=== PATIENT | male | born 1970 | race Caucasian/White ===

== ENCOUNTER → 2019-07-23 | Outpatient (CLI) | payer SELFPAY | LOC: CARD 11:38 | PROVIDERS: ATTEND Internal Medicine Cardiovascular Disease | DX: E78.2 Mixed hyperlipidemia (principal); R06.00 Dyspnea, unspecified; E11.9 Type 2 diabetes mellitus without complications; I25.10 Atherosclerotic heart disease of native coronary artery without angina pectoris; E66.9 Obesity, unspecified ==

== ENCOUNTER → 2019-07-24 | Outpatient (CLI) | payer SELFPAY ==
[~2019-07-24] VITALS: Ht 165 cm; Wt 108.0 kg
[~2019-07-24] MED LIST: CATHETER FLUSH 10 ML SYR IV PRN
[2019-07-24 09:49] VITALS: BP 139/73
--- NOTE | 2019-07-24 16:16 | STRESS TEST ---
DATE OF SERVICE: 07/24/2019 [facility] STRESS TEST REPORT REFERRING PHYSICIAN: Dr. Joshua Adams. Baseline heart rate is 64. Baseline blood pressure 117/80. Baseline EKG is sinus rhythm with no ischemic changes. In summary, the patient was injected with 10.88 mCi of technetium-99 Myoview and the resting images were obtained. Then, the patient started exercising with a baseline heart rate, blood pressure and EKG mentioned above. The patient was able to exercise for a total of 6 minutes 15 seconds on standard Narinder protocol. With peak exercise level, EKG was showing [address] depression in II, III and lead II, otherwise nonspecific changes. During recovery, heart rate and blood pressure returned to baseline. The resting and stress images were reviewed and compared in the short axis, horizontal long axis, and vertical long axis views. Review of the images showed good radiotracer uptake with no significant ischemia or infarction. SSS is 0. TID value 1.03. On the gated images, the left ventricle appeared to be normal size with normal contractility. Calculated ejection fraction 68%. CONCLUSION: 1. Fair exercise tolerance, a total of 6 minutes 15 seconds on standard Narinder protocol, a total of 7.1 METS achieving 86% of maximum expected heart rate. 2. Nondiagnostic EKG changes with exercise returned to baseline during recovery. 3. No ischemia or infarction on SPECT images. 4. Normal left ventricular size with normal contractility. Calculated ejection fraction 68%. Job ID: [id number] DocumentID: [id number] Dictated Date: 07/24/2019 16:02:44 Public Health Director Date: 07/24/2019 16:15:07 Dictated By: LAURIE HOOD MD
== END ==
LOC: CARD 07:49 → EDUNIT# 08:45
PROVIDERS: ATTEND Internal Medicine Cardiovascular Disease
DX: E78.2 Mixed hyperlipidemia (principal); R06.00 Dyspnea, unspecified; E11.9 Type 2 diabetes mellitus without complications; I25.119 Atherosclerotic heart disease of native coronary artery with unspecified angina pectoris; E66.9 Obesity, unspecified
CPT/HCPCS: 78452; 93017

== ENCOUNTER → 2022-03-02 | Outpatient (CLI) | payer OTHER ==
[2022-03-02 11:15] VITALS: BP 118/76
--- NOTE | 2022-03-02 12:44 | Cardiology Stress Test Report ---
Stress Test Report Date of Procedure/Referring: Date of Procedure: Mar 02, 2022 PCP Sharmila Stearns Aprn Admitting Physician Admitting Physician: Attending Physician: Brenna Burns Indications: HTN Baseline Heart Rate: 60 Baseline Blood Pressure: Blood Pressure Systolic: 118 Blood Pressure Diastolic: 76 Baseline EKG: Baseline EKG: NSR Summary/Conclusion: Summary: In summary, the patient started exercising with a baseline heart rate, blood pressure and EKG mentioned above Patient was able to exercise for a total of 7 minutes on Narinder protocol, METs 8.5 Maximum heart rate 145 Maximum blood pressure 188/86 Stress EKG, Minimal nondiagnostic changes Recovery EKG , Return to baseline Conclusion: 1. Good exercise tolerance for a total of 7 minutes on Narinder protocol, 8.5 METs, achieving 86 percent of maximum expected heart rate 2. Minimal nondiagnostic EKG changes with exercise returned to baseline during recovery 3. No arrhythmia was noted Copy Copies To 1: [facility]/LAURIE EMMANUEL MD Mar 02, 2022 12:44
== END ==
LOC: CARD 09:30
PROVIDERS: ATTEND Physician Assistant
DX: R07.9 Chest pain, unspecified (principal); I10 Essential (primary) hypertension
CPT/HCPCS: 93017

== ENCOUNTER → 2022-03-24 | Outpatient (CLI) | payer OTHER | LOC: CARD 09:00 | PROVIDERS: ATTEND Physician Assistant | DX: I11.9 Hypertensive heart disease without heart failure (principal); I35.1 Nonrheumatic aortic (valve) insufficiency; I25.10 Atherosclerotic heart disease of native coronary artery without angina pectoris | CPT/HCPCS: 93306 ==